=== PATIENT | female | born 1975 | race Caucasian/White ===

== ENCOUNTER 2025-09-24 11:58 | Emergency (ER) | payer OTHER ==
[2025-09-24] MEDS ORDERED: CLONAZEPAM1 MG PO (12:08)
[2025-09-24] MEDS ORDERED: NORTRIPTYLINE H10 MG PO (12:08)
[2025-09-24] MEDS ORDERED: TOPIRAMATE200 MG PO (12:09)
[2025-09-24] MEDS ORDERED: LAMOTRIGINE200 MG PO (12:09)
[2025-09-24] MEDS ORDERED: LISINOPRIL5 MG PO (12:09)
[2025-09-24] MEDS ORDERED: IBUPROFEN 600 MG TAB PO ONE (12:15)
[2025-09-24] MEDS ORDERED: ACETAMINOPHEN 500 MG TAB PO ONE (12:15)
[2025-09-24] MEDS ORDERED: HYDROCODON-ACE1 EA10 PO (14:11)
[2025-09-24] MEDS ORDERED: HYDROCODONE/ACETA 5/325 TAB PO ONE (14:15)
== END 2025-09-24 14:21 | disposition home or self-care (01) ==
LOC: ED 11:58
DX: S06.9X1A Unspecified intracranial injury with loss of consciousness of 30 minutes or less, initial encounter (principal); S80.212A Abrasion, left knee, initial encounter; S00.31XA Abrasion of nose, initial encounter; S00.511A Abrasion of lip, initial encounter; I10 Essential (primary) hypertension; W10.1XXA Fall (on)(from) sidewalk curb, initial encounter; Z79.899 Other long term (current) drug therapy
CPT/HCPCS: 70450; 99284-25; A9270